=== PATIENT | female | born 1955 | race Caucasian/White ===

== ENCOUNTER → 2023-06-20 07:42 | Outpatient (REF) | payer OTHER, SELFPAY | LOC: WDC 07:42 | PROVIDERS: ATTENDING PHYSICIAN Family Medicine | DX: R92.2 Inconclusive mammogram (principal); R92.30 Dense breasts, unspecified | CPT/HCPCS: 76641 ==

== ENCOUNTER → 2023-06-25 07:59 | Outpatient (REF) | payer OTHER, SELFPAY | LOC: HWRCS 07:59 | PROVIDERS: ATTENDING PHYSICIAN Physician Assistant | DX: R60.0 Localized edema (principal); R63.5 Abnormal weight gain; R01.1 Cardiac murmur, unspecified | CPT/HCPCS: 71046; 93306 ==

== ENCOUNTER → 2023-08-02 07:11 | Outpatient (REF) | payer OTHER, SELFPAY | LOC: RCS 07:11 | PROVIDERS: ATTENDING PHYSICIAN Physician Assistant | DX: I31.39 Other pericardial effusion (noninflammatory) (principal) | CPT/HCPCS: 93306 ==

== ENCOUNTER → 2023-08-30 07:12 | Outpatient (REF) | payer OTHER, SELFPAY | LOC: RCS 07:12 | PROVIDERS: ATTENDING PHYSICIAN Family Medicine | DX: I31.39 Other pericardial effusion (noninflammatory) (principal); R60.9 Edema, unspecified | CPT/HCPCS: 93308; 93306; 93321; 93325 ==

== ENCOUNTER → 2023-11-22 07:49 | Outpatient (REF) | payer OTHER, SELFPAY | LOC: RAD 07:49 | PROVIDERS: ATTENDING PHYSICIAN Orthopaedic Surgery Hand Surgery; FAMILY PHYSICIAN Family Medicine | DX: S72.362 Displaced segmental fracture of shaft of left femur (principal) | CPT/HCPCS: 73700 ==

== ENCOUNTER 2023-12-05 13:45 | Inpatient (IN) | payer OTHER, SELFPAY ==
--- NOTE | 2023-12-04 13:42 | PTCARENOTE ---
Pt took Meloxicam on 12/04/2023, RN provided anesthesia guidelines for the pre-op NSAID use and notified Alicia Redmond further orders at this time.
[2023-12-05] VITALS (16 sets, daily range): BP systolic 79–136; BP diastolic 39–71; BMI 33.0
[2023-12-05 13:17] LABS: Hematocrit 40.1 % (37.0-47.0); Hemoglobin 14.1 g/dL (12.0-16.0); Mean Corp Hgb Conc. 35.2 g/dL (33.0-37.0); Mean Corpuscular Hgb 30.3 pg (27.0-31.0); Mean Corpuscular Volume 86.1 fL (81.0-99.0); Red Blood Cell Count 4.66 10^6/uL (4.20-5.40); Red Cell Dist. Width 13.4 % (11.5-14.5); White Blood Cell Count 7.3 10^3/uL (4.8-10.8)
[2023-12-05 14:07] LABS: ALT (SGPT) 35 U/L (0-35); AST (SGOT) 37 U/L (14-36); Albumin 4.8 g/dl (3.5-5.0); Alkaline Phosphatase 105 U/L (38-126); Blood Urea Nitrogen 8 mg/dl (7-17); Calcium 9.8 mg/dl (8.4-10.2); Carbon Dioxide 27 mmol/L (22-30); Chloride 101 mmol/L (98-107); Estimated Creatinine Clearance 88 ml/min; Glucose 97 mg/dl (70-99); Sodium 140 mmol/L (135-145); Total Bilirubin 0.5 mg/dl (0.2-1.3); Total Protein 7.6 g/dl (6.3-8.2); eGFR > 60.00
[2023-12-05] MEDS: TYLENOL 650 MG PO ×2 (19:01→22:52)
[2023-12-05 19:02] LABS: Hematocrit 33.8 % (37.0-47.0); Hemoglobin 11.7 g/dL (12.0-16.0)
[2023-12-05] MEDS: DILAUDID 0.5 MG IV (19:03)
--- NOTE | 2023-12-05 19:38 | SUR.PHASEI ---
patient received in pacu with hypotension and screaming with pain. color pale - skin cool and dry, IV wide open. WHEEL BLOCKER treating pain. patient calling out with pain but unable to answer questions. BP checked multiple times - and then cuff moved to
right arm - bp on right arm 20 mmHG higher than left. H & H drawn and sent, Medicate with caution - c/o pain - all over.
[2023-12-05] MEDS: ACULAR 0.5% EYE DROPS 1 DROP OPHTH ×2 (19:44→23:13)
--- NOTE | 2023-12-05 20:45 | SUR.PHASEI ---
although patient states pain could still be 6-10 on left leg - able to converse freely and sleep,. vss, H& H called to Dr Eastman and Dr Astudillo. dsg with scant drainage. Ice on. called x2 with updates - transfer to [address] [place] [address] when available
and hand off at bedside.
[2023-12-05] MEDS: SENOKOT 17.2 MG PO (22:52)
[2023-12-05] MEDS: LIPITOR 10 MG PO (22:52)
[2023-12-05] MEDS: COLACE 100 MG PO (22:53)
[2023-12-05] MEDS: LOVENOX 30 MG SC (22:54)
[2023-12-06] VITALS (8 sets, daily range): BP systolic 92–116; BP diastolic 55–85; PULSE 95–99; O2SAT 93–95
[2023-12-06] MEDS: TYLENOL PO (00:10)
[2023-12-06] MEDS: TYLENOL 650 MG PO ×5 (05:02→20:48)
[2023-12-06] MEDS: ROXICODONE 10 MG PO ×3 (05:03→16:20)
[2023-12-06] MEDS: FLOMAX 0.4 MG PO (05:03)
[2023-12-06 06:33] LABS: Hematocrit 29.5 % (37.0-47.0); Hemoglobin 10.1 g/dL (12.0-16.0); Mean Corp Hgb Conc. 34.2 g/dL (33.0-37.0); Mean Corpuscular Hgb 30.1 pg (27.0-31.0); Mean Corpuscular Volume 87.8 fL (81.0-99.0); Mean Platelet Volume 13.5 fL (7.4-10.4); Platelet Count 190 10^3/uL (130-400); Red Blood Cell Count 3.36 10^6/uL (4.20-5.40); Red Cell Dist. Width 13.2 % (11.5-14.5); White Blood Cell Count 12.4 10^3/uL (4.8-10.8)
--- NOTE | 2023-12-06 07:19 | W.PN.UPDATE ---
Update Note
Progress Note Update
With pain to be expected
No clinical signs of cpt syndrome
L LE NVI
Dressing intact
Plan;
PT/OT
Full WB L LE
DVT prophylaxis
IV antibx for 24 hours
Anticipate DC to home tomorrow
thanks
GGMD
[2023-12-06] MEDS: LASIX 20 MG PO (08:29)
[2023-12-06] MEDS: ANCEF 5 IV ×2 (08:29→15:25)
[2023-12-06] MEDS: COLACE 100 MG PO ×2 (08:30→20:48)
[2023-12-06] MEDS: SENOKOT 17.2 MG PO ×2 (08:30→20:48)
[2023-12-06] MEDS: FEOSOL 325 MG PO (08:30)
[2023-12-06] MEDS: NORVASC 10 MG PO (08:30)
--- NOTE | 2023-12-06 12:19 | CM ---
Addendum entered by Miri Mensah RN 12/06/23 16:03:
IMM reviewed and placed on chart.
Original Note:
Reviewed the chart notes and spoke with the patient at the bedside. The patient resides with her spouse in a one story home with four steps to enter. The patient has a rolling walker, cane, tub bench, and tub grab bars. The patient has been to
[facility] in the past, has had VN unknown agency name. [facility] CM continues to be available to patient/family and is monitoring medical plan for needs at discharge.
Plan: Discharge plans will depend on the patient's progress.
--- NOTE | 2023-12-06 14:36 | PN.CDI ---
CDI
- -
CDI:
Physician Documentation Request
Admit Date: 12/05/23 13:45
Dear Doctor Jaren,
Please review the following and provide your response in the progress notes.
Clinical Indicators:
PAST MEDICAL HISTORY:
#3. Anemia.
POSTOPERATIVE DIAGNOSIS: Left hypertrophic femoral shaft fracture,
hypertrophic nonunion.
12/04 PROCEDURE: Exchange intramedullary rodding.
Laboratory Tests
12/05/23 12/05/23 12/06/23
13:05 18:50 05:02
Hgb 14.1 11.7 L 10.1 L
Based on the above and your clinical assessment, please clarify the condition/diagnosis evaluated, monitored and/or treated?
Acute blood loss anemia
Abnormal lab value, clinically insignificant
Other(please specify)
Use of terms such as suspected, likely, concern for, or probable (associated with a specific diagnosis that is being evaluated, monitored, or treated as if it exists) are acceptable and can be coded in the inpatient setting, when documented at the
time of discharge.
Thank you,
Theresa Polk RN BSN CCDS
CDI Specialist
please contact via tiger text
Please use your independent medical judgment in providing your response.
[2023-12-06] MEDS: LOVENOX 30 MG SC (17:09)
[2023-12-06] MEDS: LIPITOR 10 MG PO (20:49)
[2023-12-07] MEDS: TYLENOL 650 MG PO ×7 (00:26→23:42)
[2023-12-07] MEDS: ANCEF 5 IV ×2 (00:26→09:15)
[2023-12-07 03:03] VITALS: BP 115/60
[2023-12-07 07:29] VITALS: BP 105/56
--- NOTE | 2023-12-07 07:57 | W.PN.UPDATE ---
Update Note
Progress Note Update
Still with significant pain
VSS
L LE NVI
No signs of cpt syndrome
Continue PT/OT/IV and po analgesics/DVT prophylaxis
Anticipate DC tomorrow
Thanks
GGMD
--- NOTE | 2023-12-07 07:59 | W.PN.UPDATE ---
Update Note
Progress Note Update
Billing dept contacted my and asked me to acknowledge the expected postop anemia
This note serves that purpose
No tx needed at this time besides time
GGMD
[2023-12-07] MEDS: FEOSOL 325 MG PO (09:14)
[2023-12-07] MEDS: SENOKOT 17.2 MG PO ×2 (09:14→20:31)
[2023-12-07] MEDS: NORVASC 10 MG PO (09:14)
[2023-12-07] MEDS: LASIX 20 MG PO (09:14)
[2023-12-07] MEDS: COLACE 100 MG PO ×2 (09:15→20:31)
--- NOTE | 2023-12-07 09:20 | PTCARENOTE ---
Pt with c/o 09/14 LLE pain, pt stating ' its ok for me'. Pain regimen reviewed with pt and pt offered PRN oxycodone, declining at this time. Care remains ongoing.
--- NOTE | 2023-12-07 09:20 | VNURNOTE ---
Home Health Liaison met with patient at bedside to discuss [facility] nurse/therapy, visits, schedule and homebound status. Patient is agreeable and understands that visits at home will be 2-3 x per week to assess and teach medical management.
[facility] brochure provided with contact information. Patient is aware that [facility] will contact them for start of care in 1-2 days after discharge from .
[facility] referral completed in [facility].
--- NOTE | 2023-12-07 10:27 | CM ---
Reviewed the chart notes and spoke with the patient at the bedside. Patient's spouse will provide transportation home. The patient anticipates home with VN. [facility] liaison has met with the patient. CM continues to be available to patient/family
and is monitoring medical plan for needs at discharge.
Plan: Discharge to home with VN services.
[2023-12-07 11:13] VITALS: BP 115/62
[2023-12-07] MEDS: LOVENOX 30 MG SC (17:15)
[2023-12-07] MEDS: ROXICODONE 10 MG PO (17:19)
[2023-12-07] MEDS: LIPITOR 10 MG PO (21:04)
[2023-12-07 23:40] VITALS: BP 105/53
[2023-12-08] MEDS: TYLENOL 650 MG PO ×3 (03:44→12:27)
[2023-12-08] MEDS: SENOKOT 17.2 MG PO (07:51)
[2023-12-08] MEDS: FEOSOL 325 MG PO (07:51)
[2023-12-08] MEDS: COLACE 100 MG PO (07:51)
[2023-12-08] MEDS: LASIX 20 MG PO (07:51)
[2023-12-08] MEDS: NORVASC 10 MG PO (07:52)
[2023-12-08 08:08] VITALS: BP 121/62
[2023-12-08] MEDS: ROXICODONE 5 MG PO (08:15)
--- NOTE | 2023-12-08 09:05 | W.PN.ORTHO ---
Today's Communication / Plan
-
67-year-old female postop day 3 status post left femoral intramedullary nail exchange, doing well
Weightbearing as tolerated left lower extremity
PT OT
Pain control
DVT prophylaxis: Recommend 2.5 mg Eliquis twice daily. This was sent to her pharmacy and patient understands that this is what she is to take.
Plan: Hopefully discharge home today. She has outpatient follow-up previously scheduled with Dr. Eastman
Subjective
.
.:
Patient resting comfortably in chair. Patient reports that she has been able to ambulate independently has been able to get herself out of bed to the bathroom back to the chair without any help. She continues to complain of some pain throughout
the left leg.
Vital Signs and Labs
.
Vital Signs and Labs:
Lab Results
12/06/23 05:02
12/05/23 13:39
Temp Pulse Resp BP Pulse Ox
97.7 F 113 20 121/62 95
12/08/23 08:08 12/08/23 08:08 12/08/23 08:08 12/08/23 08:08 12/08/23 08:08
Physical Exam
-
Musculoskeletal left lower extremity
Dressings with moderate bloody drainage, some ecchymotic staining is noted
Moderate swelling noted throughout the thigh
Positive EHL FHL ankle dorsiflexion plantarflexion
Sensation intact to light touch in all distributions distally
Distal extremity warm and pink
[2023-12-08 14:43] VITALS: BP 123/62
== END 2023-12-08 14:45 | disposition home health service (06) | DRG 481 ==
LOC: 2 SOUTH 13:45
PROVIDERS: ADMITTING PHYSICIAN Orthopaedic Surgery Hand Surgery
PROC: 0QU Lower Bones, Supplement (ICD-10-PCS; 2023-12-05)
PROC: 0QS806Z Reposition Right Femoral Shaft with Intramedullary Internal Fixation Device, Open Approach (ICD-10-PCS; 2023-12-05)
PROC: 0QP904Z Removal of Internal Fixation Device from Left Femoral Shaft, Open Approach (ICD-10-PCS; 2023-12-05)
DX: S72.352K Displaced comminuted fracture of shaft of left femur, subsequent encounter for closed fracture with nonunion (principal); D62 Acute posthemorrhagic anemia; I10 Essential (primary) hypertension; M06.9 Rheumatoid arthritis, unspecified; E78.00 Pure hypercholesterolemia, unspecified; G47.30 Sleep apnea, unspecified; M81.0 Age-related osteoporosis without current pathological fracture; I95.9 Hypotension, unspecified; Z79.899 Other long term (current) drug therapy; Z91.040 Latex allergy status; Z86.718 Personal history of other venous thrombosis and embolism
CPT/HCPCS: 73552; 76000; 80053; 85014; 85018; 85027; 86850; 86900; 86901; 87070; 87075; 87205; 93005; 97116; 97162; 97166; 97530; 97535

== ENCOUNTER → 2024-01-16 08:58 | Outpatient (REF) | payer OTHER, SELFPAY | LOC: RCS 08:58 | PROVIDERS: ATTENDING PHYSICIAN Internal Medicine; FAMILY PHYSICIAN Family Medicine | DX: I31.39 Other pericardial effusion (noninflammatory) (principal); I10 Essential (primary) hypertension | CPT/HCPCS: 93306 ==

== ENCOUNTER → 2024-03-03 11:38 | Outpatient (REF) | payer OTHER, SELFPAY ==
[2024-03-03 12:58] LABS: % Basophils 0.5 % (0-2); % Eosinophils 2.2 % (0-6); % Immature Granulocytes 0.4 % (0-0.5); % Lymphocytes 12.6 % (20.5-51.1); % Monocytes 13.7 % (1.7-9.3); % Neutrophils 70.6 % (42.2-75.2); Absolute Basophils 0.1 10^3/uL (0-0.2); Absolute Eosinophils 0.2 10^3/uL (0-0.7); Absolute Lymphocytes 1.2 10^3/uL (1.2-3.4); Absolute Monocytes 1.4 10^3/uL (0.1-0.6); Hematocrit 35.6 % (37.0-47.0); Hemoglobin 11.7 g/dL (12.0-16.0); Mean Corp Hgb Conc. 32.9 g/dL (33.0-37.0); Mean Corpuscular Hgb 27.7 pg (27.0-31.0); Mean Corpuscular Volume 84.2 fL (81.0-99.0); Mean Platelet Volume 12.8 fL (7.4-10.4); Nucleated Red Blood Cells % 0 %; Platelet Count 247 10^3/uL (130-400); Red Blood Cell Count 4.23 10^6/uL (4.20-5.40); Red Cell Dist. Width 13.1 % (11.5-14.5); White Blood Cell Count 9.9 10^3/uL (4.8-10.8)
[2024-03-03 13:36] LABS: Blood Urea Nitrogen 8 mg/dl (7-17); Calcium 9.1 mg/dl (8.4-10.2); Carbon Dioxide 31 mmol/L (22-30); Chloride 93 mmol/L (98-107); Glucose 95 mg/dl (70-99); Potassium 4.6 mmol/L (3.5-5.1); Sodium 133 mmol/L (135-145); eGFR > 60.00
[2024-03-03 13:40] LABS: NT-proBNP 771 pg/ml
== END ==
LOC: REG 11:38
PROVIDERS: ATTENDING PHYSICIAN Physician Assistant
DX: R05.1 Acute cough (principal); R60.0 Localized edema; R06.00 Dyspnea, unspecified
CPT/HCPCS: 36415; 71046; 80048; 83880; 85025

== ENCOUNTER → 2024-04-09 11:07 | Outpatient (REF) | payer OTHER, SELFPAY | LOC: WDC 11:07 | PROVIDERS: ATTENDING PHYSICIAN Obstetrics & Gynecology; FAMILY PHYSICIAN Family Medicine | DX: Z12.31 Encounter for screening mammogram for malignant neoplasm of breast (principal) | CPT/HCPCS: 77063; 77067 ==

== ENCOUNTER → 2024-05-13 08:38 | Outpatient (REF) | payer MEDICARE, SELFPAY | LOC: HWRAD 08:38 | PROVIDERS: ATTENDING PHYSICIAN Orthopaedic Surgery Hand Surgery; FAMILY PHYSICIAN Family Medicine | DX: S72.352K Displaced comminuted fracture of shaft of left femur, subsequent encounter for closed fracture with nonunion (principal) | CPT/HCPCS: 73700 ==

== ENCOUNTER 2024-06-16 06:24 | Day surgery (SDC) | payer MEDICARE, SELFPAY ==
[2024-06-09 08:00] VITALS: BMI 32.8
[2024-06-09 09:29] LABS: Blood Urea Nitrogen 10 mg/dl (7-17); Calcium 9.8 mg/dl (8.4-10.2); Carbon Dioxide 30 mmol/L (22-30); Chloride 101 mmol/L (98-107); Estimated Creatinine Clearance 88 ml/min; Glucose 84 mg/dl (70-99); Potassium 4.4 mmol/L (3.5-5.1); Sodium 142 mmol/L (135-145); eGFR > 60.00
[2024-06-09 09:41] LABS: Hematocrit 40.9 % (37.0-47.0); Hemoglobin 13.6 g/dL (12.0-16.0); Mean Corp Hgb Conc. 33.3 g/dL (33.0-37.0); Mean Corpuscular Hgb 28.9 pg (27.0-31.0); Mean Corpuscular Volume 86.8 fL (81.0-99.0); Mean Platelet Volume 13.5 fL (7.4-10.4); Platelet Count 222 10^3/uL (130-400); Red Blood Cell Count 4.71 10^6/uL (4.20-5.40); Red Cell Dist. Width 16.7 % (11.5-14.5); White Blood Cell Count 8.5 10^3/uL (4.8-10.8)
--- NOTE | 2024-06-09 15:18 | PTCARENOTE ---
Abnormal EKG on 06/09/24. Dr. Pittman aware. No interventions needed.
[2024-06-16] VITALS (9 sets, daily range): BP systolic 107–135; BP diastolic 48–99; BMI 32.8
[2024-06-16] MEDS: Pyridium 200 MG PO (11:05)
[2024-06-16] MEDS: HEPARIN 5000 UNITS SC (11:05)
[2024-06-16] MEDS: TYLENOL 1000 MG PO (11:31)
[2024-06-16] MEDS: NORMOSOL-R/PLASMALYTE-A 1000 IV (11:32)
[2024-06-16] MEDS: SUBLIMAZE 25 MCG IV (16:42)
== END 2024-06-16 19:17 | disposition home or self-care (01) ==
LOC: SDS 06:24
PROVIDERS: ATTENDING PHYSICIAN Obstetrics & Gynecology; FAMILY PHYSICIAN Family Medicine
DX: N99.3 Prolapse of vaginal vault after hysterectomy (principal); Y83.8 Other surgical procedures as the cause of abnormal reaction of the patient, or of later complication, without mention of misadventure at the time of the procedure
CPT/HCPCS: 57120; 57250; 36415; 80048; 85027; 86850; 86900; 86901; 93005; C1713

== ENCOUNTER 2024-07-16 12:21 | Outpatient (RCR) | payer MEDICARE, SELFPAY | END 2024-07-16 23:59 | disposition home or self-care (01) | LOC: RPT 12:21 | PROVIDERS: ATTENDING PHYSICIAN Family Medicine | DX: M81.8 Other osteoporosis without current pathological fracture (principal); R26.81 Unsteadiness on feet; Z91.81 History of falling; Z99.89 Dependence on other enabling machines and devices; Z73.6 Limitation of activities due to disability | CPT/HCPCS: 97162; 97530 ==

== ENCOUNTER 2024-08-18 08:33 | Outpatient (RCR) | payer MEDICARE, SELFPAY ==
[2024-08-18 08:45] VITALS: BP 126/65
[2024-08-18] MEDS: RECLAST 100 IV (08:52)
[2024-08-18 09:19] VITALS: BP 121/66
== END 2024-08-19 10:30 | disposition home or self-care (01) ==
LOC: OID 08:33
PROVIDERS: ATTENDING PHYSICIAN Family Medicine
DX: M81.0 Age-related osteoporosis without current pathological fracture (principal); Z59.71 Insufficient health insurance coverage
CPT/HCPCS: 96365; J3489

== ENCOUNTER 2024-09-03 07:07 | Outpatient (RCR) | payer MEDICARE, SELFPAY | END 2024-09-03 23:59 | disposition home or self-care (01) | LOC: RPT 07:07 | PROVIDERS: ATTENDING PHYSICIAN Family Medicine | DX: M81.8 Other osteoporosis without current pathological fracture (principal); R26.81 Unsteadiness on feet; Z91.81 History of falling; Z73.6 Limitation of activities due to disability; M62.81 Muscle weakness (generalized); R26.89 Other abnormalities of gait and mobility; Z99.89 Dependence on other enabling machines and devices | CPT/HCPCS: 97110; 97112; 97140 ==

== ENCOUNTER 2024-09-24 06:46 | Outpatient (RCR) | payer MEDICARE, SELFPAY | END 2024-09-24 23:59 | disposition home or self-care (01) | LOC: RPT 06:46 | PROVIDERS: ATTENDING PHYSICIAN Family Medicine | DX: M81.8 Other osteoporosis without current pathological fracture (principal); R26.81 Unsteadiness on feet; Z99.89 Dependence on other enabling machines and devices; Z91.81 History of falling; Z73.6 Limitation of activities due to disability | CPT/HCPCS: 97110; 97112; 97140; 97161 ==

== ENCOUNTER 2024-12-01 07:26 | Outpatient (RCR) | payer MEDICARE, SELFPAY | END 2024-12-01 23:59 | disposition home or self-care (01) | LOC: RPT 07:26 | PROVIDERS: ATTENDING PHYSICIAN Family Medicine | DX: R26.81 Unsteadiness on feet (principal); Z73.6 Limitation of activities due to disability; R26.89 Other abnormalities of gait and mobility; M25.552 Pain in left hip; R20.0 Anesthesia of skin; M62.81 Muscle weakness (generalized) | CPT/HCPCS: 97010; 97110; 97112; 97162 ==

== ENCOUNTER 2024-12-22 07:08 | Outpatient (RCR) | payer MEDICARE, SELFPAY | END 2024-12-22 10:22 | disposition home or self-care (01) | LOC: RPT 07:08 | PROVIDERS: ATTENDING PHYSICIAN Family Medicine | DX: R26.81 Unsteadiness on feet (principal); Z73.6 Limitation of activities due to disability; R26.89 Other abnormalities of gait and mobility; M25.552 Pain in left hip; R20.0 Anesthesia of skin; M62.81 Muscle weakness (generalized) | CPT/HCPCS: 97110; 97112 ==